=== PATIENT | male | born 1980 | race Caucasian/White ===

== ENCOUNTER 2018-03-24 09:00 | Day surgery (SDC) | payer BC ==
[~2018-03-24 09:00] MED LIST: Lactated Ringers 1,000 ML IV SCH; Propofol 200 MG/20 ML SDV ONE; Sodium Chloride 0.9% 5 ML Syringe FLUSH PRN
[2018-03-24] MEDS ORDERED: Propofol 200 MG/20 ML SDV ONE (09:17)
--- NOTE | 2018-03-24 09:48 | PCM.PN ---
- General Info Date of Service: 03/24/18 - Review of Systems Systems Review Comment:: 37-year-old male referred for upper endoscopy because of chronic symptoms of heartburn. He states symptoms are fairly well-controlled while taking Prilosec but other medicines have not controlled his symptoms well and when he stops the Prilosec he has significant symptoms. He is medically stable to proceed today. There has been no recent significant change in his health status. I have discussed the proposed upper endoscopy with the patient. The procedure was reviewed and he agrees to proceed accepting risks. - Patient Data Vitals - Most Recent: Last Vital Signs Temp 98.0 F 03/24/18 09:00 Pulse 66 03/24/18 09:00 Resp 18 03/24/18 09:00 BP 161/99 H 03/24/18 09:00 Pulse Ox 98 03/24/18 09:00 Weight - Most Recent: 97.522 kg Med Orders - Current: Current Medications Lactated Ringer's (Ringers, Lactated) 1,000 mls @ 50 mls/hr IV ASDIRECTED [facility] Last Admin: 03/24/18 09:23 Dose: 50 mls/hr Sodium Chloride (Syrex Flush) 5 ml FLUSH Q8HR PRN PRN Reason: Keep Vein Open Discontinued Medications Propofol (Diprivan 20 Ml) Confirm Administered Dose 400 mg .ROUTE .STK-MED ONE Stop: 03/24/18 08:39 - Problem List Review Problem List Initiated/Reviewed/Updated: Yes - My Orders Last 24 Hours: My Active Orders 03/23/18 12:11 Resuscitation Status Routine 03/24/18 09:00 Peripheral IV Care [RC] . DIRECTED Lactated Ringers [Ringers, Lactated] 1,000 ml IV ASDIRECTED Sodium Chloride 0.9% [Syrex Flush] 5 ml FLUSH Q8HR PRN Peripheral IV Insertion Adult [OM.PC] Routine 03/24/18 09:30 Patient to Empty Bladder [RC] ASDIRECTED Verify Patient Consent Obtain [RC] ASDIRECTED 03/24/18 Breakfast Nothing Per Oral Diet [DIET] - Assessment Assessment:: GERD - Plan Plan:: EGD
[2018-03-24] MEDS ORDERED: Propofol 200 MG/20 ML SDV IV ONE (09:50)
[2018-03-24] MEDS ORDERED: Lidocaine 1% 20 ML MDV INJECT ONE (09:50)
[2018-03-24] MEDS ORDERED: Lidocaine 2% 100 MG/5 ML Syringe IVPUSH ONE (09:50)
--- NOTE | 2018-03-24 10:26 | PCM.OPNOTE ---
- General Post-Op/Procedure Note Date of Surgery/Procedure: 03/24/18 Operative Procedure(s): EGD with Biopsy Findings: Inflammation at GE Jct - Possible Alexis's Esophagus Pre Op Diagnosis: GERD Post-Op Diagnosis: Reflux Esophagitis Anesthesia Technique: [facility] [place] Primary Surgeon: Say Jovel Pathology: Biopsies of Duodenum, Stomach, and Esophagus Output, Urine Amount: 0 EBL in mLs: 3 Complications: None Condition: Good
--- NOTE | 2018-03-24 21:05 | OR ---
DATE OF SURGERY: 03/24/2018 SURGEON: Say Jovel MD REFERRING PHYSICIAN: Pricila Valles MD PREOPERATIVE DIAGNOSIS: Gastroesophageal reflux disease. POSTOPERATIVE DIAGNOSIS: Reflux esophagitis. OPERATION PERFORMED: Esophagogastroduodenoscopy with biopsy. INDICATIONS FOR SURGERY: This is a 37-year-old male has had a longstanding history of acid reflux. He has been controlling this with Prilosec, but does require routine use of this medicine to control symptoms. FINDINGS: The patient has a moderate degree of reflux esophagitis with approximately 2 cm cephalad extension and irregularity of the Z-line. The remainder of the esophagus, stomach, and duodenum appear normal. PROCEDURE: The patient was taken to the operating room. He was given intravenous sedation, and with him in the left lateral decubitus position, the esophagus was intubated with the Olympus gastroscope. This was carefully advanced under direct visualization through the esophagus, stomach, and into the duodenum where examination to the third portion was performed. Random biopsies were taken of the duodenum to evaluate the patient's symptoms. The scope was then withdrawn back into the stomach where random biopsies of the antrum were taken to rule out H. pylori. Full examination of the stomach including retroflexed examination of the fundus was performed. The GE junction was then carefully examined with findings as described above. Biopsies were taken of the distal esophagus and GE junction area at the 38 and 36 cm level from the incisors. After these biopsies were taken and with no sign of any complication, the esophagus was re-examined as the scope was withdrawn. The scope was removed and the patient was taken from the operating room in satisfactory condition. ESTIMATED BLOOD LOSS: 3 mL. COMPLICATIONS: None. PROGNOSIS: Good. /[id number]/MODL
== END 2018-03-24 11:00 | disposition home or self-care (01) ==
LOC: KA.SDS 09:00
PROVIDERS: ATTEND Surgery
DX: K21.0 Gastro-esophageal reflux disease with esophagitis (principal); K22.70 Barrett's esophagus without dysplasia; Z79.899 Other long term (current) drug therapy
CPT/HCPCS: J2704; J7120

== ENCOUNTER 2019-05-18 02:06 | Emergency (ER) | payer BC ==
[2019-05-18] MEDS ORDERED: Sodium Chloride 0.9% 1,000 ML IV ONE (02:12)
[2019-05-18] MEDS ORDERED: Sodium Chloride 0.9% 10 ML Syringe FLUSH PRN (02:13)
[2019-05-18] MEDS ORDERED: Lisinopril 10 MG Tab PO ONE (02:35)
--- NOTE | 2019-05-18 02:43 | EDM.PDOC ---
ED HPI GENERAL MEDICAL PROBLEM - General Chief Complaint: Headache Stated Complaint: headache, HTN Time Seen by Provider: 05/18/19 02:34 Source of Information: Reports: Patient History Limitations: Reports: No Limitations - History of Present Illness INITIAL COMMENTS - FREE TEXT/NARRATIVE: Patient's a 39-year-old gentleman who presents to the emergency department this morning with a complaint of headache. Patient states he went to bed about 1130 last night, and woke up between 1 and 130 with a pressure described headache. Became concerned because he stopped his lisinopril for high blood pressure 5 days ago and took blood pressure this morning and it was elevated. Patient states that he started lisinopril and developed diarrhea and thought it may be caused by the medication. He therefore stopped the medicine but has not contacted Dr. De La Paz for follow-up. Headache has been diminishing since presentation to the ER, and patient denies blurry vision, vertigo, chest pain, shortness of breath, fever, stiff neck or neck pain, any trauma, nausea or vomiting or temporal pain. Onset: Today Onset Date: 05/18/19 Onset Time: 01:00 Duration: Minutes: Location: Reports: Head Quality: Reports: Pressure Severity: Mild Improves with: Reports: Other (Spontaneously) Worsens with: Reports: None Associated Symptoms: Reports: Headaches. 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 head Pain Score (Numeric/FACES): 5 - Related Data Allergies Allergy/AdvReac Type Severity Reaction Status Date / Time No Known Drug Allergies Allergy Other Verified 05/18/19 02:12 Home Meds: Home Meds Albuterol [Ventolin HFA] 1 puff INH ASDIRECTED PRN 03/23/18 [History] Omeprazole Magnesium [Prilosec Otc] 20 mg PO DAILY 03/23/18 [History] Montelukast Sodium [Singulair] 10 mg PO BEDTIME 05/18/19 [History] Past Medical History HEENT History: Reports: Impaired Vision Cardiovascular History: Reports: None Respiratory History: Reports: Asthma Gastrointestinal History: Reports: Chronic Diarrhea, GERD Genitourinary History: Reports: None Musculoskeletal History: Reports: None Neurological History: Reports: None Psychiatric History: Reports: None Endocrine/Metabolic History: Reports: Obesity/BMI 30+ - Infectious Disease History Infectious Disease History: Reports: Chicken Pox - Past Surgical History HEENT Surgical History: Reports: Oral Surgery Cardiovascular Surgical History: Reports: None Respiratory Surgical History: Reports: None GI Surgical History: Reports: Appendectomy Endocrine Surgical History: Reports: None Neurological Surgical History: Reports: None Musculoskeletal Surgical History: Reports: None Social & Family History - Family History Family Medical History: Noncontributory - Caffeine Use Caffeine Use: Reports: Coffee, Soda ED ROS GENERAL - Review of Systems Review Of Systems: ROS reveals no pertinent complaints other than HPI. Constitutional: Reports: No Symptoms. Denies: Fever HEENT: Reports: No Symptoms. Denies: Vertigo, Vision Change Respiratory: Reports: No Symptoms Cardiovascular: Reports: Blood Pressure Problem Endocrine: Reports: No Symptoms GI/Abdominal: Reports: No Symptoms : Reports: No Symptoms Musculoskeletal: Reports: No Symptoms Skin: Reports: No Symptoms Neurological: Reports: No Symptoms Psychiatric: Reports: No Symptoms Hematologic/Lymphatic: Reports: No Symptoms Immunologic: Reports: No Symptoms - Physical Exam Exam: See Below Exam Limited By: No Limitations General Appearance: Alert, WD/WN, No Apparent Distress Eye Exam: Bilateral Eye: Normal Inspection Nose: Normal Inspection, Normal Mucosa, No Blood Throat/Mouth: Normal Inspection, Normal Oropharynx, No Airway Compromise Head Exam: Atraumatic, Normocephalic Neck: Normal Inspection, Supple, Non-Tender, Full Range of Motion Respiratory/Chest: No Respiratory Distress, Lungs Clear, Normal Breath Sounds, No Accessory Muscle Use, Chest Non-Tender Cardiovascular: Normal Peripheral Pulses, Regular Rate, Rhythm, No Murmur, No Rub GI/Abdominal: Normal Bowel Sounds, Soft, Non-Tender, No Organomegaly, No Distention, No Abnormal Bruit, No Mass Neuro Exam (Abbreviated): Alert, Oriented, CN II-XII Intact, Normal Cognition, No Motor/Sensory Deficits Back Exam: Normal Inspection. No: CVA Tenderness (L), CVA Tenderness (R) Extremities: Normal Inspection, No Pedal Edema Psychiatric: Normal Affect, Normal Mood Skin Exam: Warm, Dry, Intact, Normal Color, No Rash Course - Vital Signs Last Recorded V/S: Last Vital Signs Temp 97.9 F 05/18/19 03:41 Pulse 64 05/18/19 03:41 Resp 16 05/18/19 03:41 BP 205/112 H 05/18/19 03:41 Pulse Ox 97 05/18/19 03:41 - Orders/Labs/Meds Orders: Active Orders 24 hr Category Date Time Status Peripheral IV Care [RC] . DIRECTED Care 05/18/19 02:13 Active Sodium Chloride 0.9% [Saline Flush] Med 05/18/19 02:13 Active 10 ml FLUSH Q8HR PRN Peripheral IV Insertion Adult [OM.PC] Routine Oth 05/18/19 02:13 Ordered Medication Orders Sodium Chloride (Saline Flush) 10 ml FLUSH Q8HR PRN PRN Reason: keep vein open Last Admin: 05/18/19 02:20 Dose: 10 ml Meds: Medications Generic Name Dose Route Start Last Admin Trade Name Freq PRN Reason Stop Dose Admin Sodium Chloride 10 ml 05/18/19 02:13 05/18/19 02:20 Saline Flush FLUSH 10 ml Q8HR PRN Administration keep vein open Discontinued Medications Generic Name Dose Route Start Last Admin Trade Name Freq PRN Reason Stop Dose Admin Hydralazine HCl 10 mg 05/18/19 03:17 05/18/19 03:25 Apresoline PO 05/18/19 03:18 10 mg ONETIME ONE Administration Sodium Chloride 1,000 mls @ 999 mls/hr 05/18/19 02:12 05/18/19 02:25 Normal Saline IV 05/18/19 03:12 999 mls/hr .BOLUS ONE Administration Ketorolac Tromethamine 30 mg 05/18/19 03:52 05/18/19 03:54 Toradol IVPUSH 05/18/19 03:53 30 mg ONETIME ONE Administration Lisinopril 10 mg 05/18/19 02:35 05/18/19 02:39 Prinivil PO 05/18/19 02:36 10 mg ONETIME ONE Administration - Re-Assessments/Exams Free Text/Narrative Re-Assessment/Exam: 05/18/19 03:52 Patient is given 10 mg of lisinopril with no improvement in BP. Patient then given 10 mg hydralazine with little improvement. Patient does appear anxious and lies flat, and then sits up, and lies flat again. Patient afebrile, blood pressure wandering systolic 160s to 190s diastolic 80s to 100. Headache has improved. Patient denies nausea, blurry vision, or dizziness. Patient will follow-up with Dr. De La Paz today for decision on blood pressure control. Patient will return to emergency department if symptoms worsen. Departure - Departure Time of Disposition: 04:07 Disposition: Home, Self-Care 01 Condition: Good Clinical Impression: Hypertension Qualifiers: Hypertension type: unspecified Qualified Code(s): I10 - Essential (primary) hypertension Headache Qualifiers: Headache type: unspecified Headache chronicity pattern: unspecified pattern Intractability: not intractable Qualified Code(s): R51 - Headache - Discharge Information Instructions: How to Take Your Blood Pressure, [id number], Hypertension, Easy -to-Read, General Headache Without Cause, [id number] Referrals: Pricila Valles MD [Physician] - Forms: ED Department Discharge Additional Instructions: Follow-up with Dr. De La Paz today. Return to emergency department if symptoms continue or worsen. - My Orders Last 24 Hours: My Active Orders 05/18/19 02:13 Peripheral IV Care [RC] . DIRECTED Sodium Chloride 0.9% [Saline Flush] 10 ml FLUSH Q8HR PRN Peripheral IV Insertion Adult [OM.PC] Routine - Assessment/Plan Last 24 Hours: My Active Orders 05/18/19 02:13 Peripheral IV Care [RC] . DIRECTED Sodium Chloride 0.9% [Saline Flush] 10 ml FLUSH Q8HR PRN Peripheral IV Insertion Adult [OM.PC] Routine
[2019-05-18] MEDS ORDERED: hydrALAZINE 10 MG Tab PO ONE (03:17)
[2019-05-18] MEDS ORDERED: Ketorolac 30 MG/ML SDV IVPUSH ONE (03:52)
== END 2019-05-18 04:11 | disposition home or self-care (01) ==
LOC: KA.ED 02:06
DX: R51 Headache (principal); I10 Essential (primary) hypertension; K21.9 Gastro-esophageal reflux disease without esophagitis; Z79.899 Other long term (current) drug therapy; J45.909 Unspecified asthma, uncomplicated
CPT/HCPCS: 96361; 96374; 99283; A9270; J1885; J7030

== ENCOUNTER 2021-09-17 07:05 | Day surgery (SDC) | payer BC ==
[~2021-09-17 07:05] MED LIST changes: -Propofol 200 MG/20 ML SDV ONE; +Sodium Chloride 0.9% 10 ML Syringe FLUSH PRN; -Sodium Chloride 0.9% 5 ML Syringe FLUSH PRN
[2021-09-17] MEDS ORDERED: Midazolam 1 MG/ML 2 ML SDV ONE (07:46)
[2021-09-17] MEDS ORDERED: Lidocaine 2% 5 ML SDV ONE (07:47)
[2021-09-17] MEDS ORDERED: Propofol 200 MG/20 ML SDV ONE (07:47)
--- NOTE | 2021-09-17 08:05 | PCM.HP.2 ---
H&P History of Present Illness - General Date of Service: 09/17/21 Source of Information: Patient, Old Records - History of Present Illness Initial Comments - Free Text/Narative: Since last clinic appt on 08/16/21, patient has had no reported changes in health status. Clinic repeat BP check was performed on 08/21/21 with improvement in BP to 132/92. He hadn't yet started the increased dose of lisinopril as he had been prescribed on 08/16/21. He has been taking omeprazole as prescribed and denies any upper GI symptoms. - Related Data Allergies/Adverse Reactions: Allergies Allergy/AdvReac Type Severity Reaction Status Date / Time No Known Drug Allergies Allergy Other Verified 09/14/21 12:11 Home Medications: Home Meds Albuterol [Ventolin HFA] 1 - 2 puff INH ASDIRECTED PRN 03/23/18 [History] Omeprazole Magnesium [Prilosec Otc] 20 mg PO DAILY 03/23/18 [History] Albuterol [Proventil Neb Soln] 1 ampule INH Q6H PRN 09/14/21 [History] lisinopriL [Lisinopril] 40 mg PO DAILY 09/14/21 [History] Past Medical History HEENT History: Reports: Impaired Vision Cardiovascular History: Reports: High Cholesterol, Hypertension Respiratory History: Reports: Asthma Gastrointestinal History: Reports: Chronic Diarrhea, GERD, Other (See Below) (Alexis esophagus) Genitourinary History: Reports: None Musculoskeletal History: Reports: None Neurological History: Reports: None Psychiatric History: Reports: None Endocrine/Metabolic History: Reports: Obesity/BMI 30+ - Infectious Disease History Infectious Disease History: Reports: Chicken Pox - Past Surgical History HEENT Surgical History: Reports: Oral Surgery Cardiovascular Surgical History: Reports: None Respiratory Surgical History: Reports: None GI Surgical History: Reports: Appendectomy, EGD Endocrine Surgical History: Reports: None Neurological Surgical History: Reports: None Musculoskeletal Surgical History: Reports: None Social & Family History - Family History Family Medical History: No Pertinent Family History - Tobacco Use Tobacco Use Status *Q: Never Tobacco User - Caffeine Use Caffeine Use: Reports: Coffee, Soda - Recreational Drug Use Recreational Drug Use: No H&P Review of Systems - Review of Systems: Review Of Systems: See Below Pulmonary: Denies: Shortness of Breath, Pleuritic Chest Pain, Cough Cardiovascular: Denies: Chest Pain, Dyspnea on Exertion, Edema, Lightheadedness Gastrointestinal: Denies: Abdominal Pain, Constipation, Diarrhea, Difficulty Swallowing, Nausea, Vomiting Exam - Exam Exam: See Below - Vital Signs Vital Signs: Last Vital Signs Temp 35.9 C L 09/17/21 07:08 Pulse 63 09/17/21 07:08 Resp 18 09/17/21 07:08 BP 165/101 H 09/17/21 07:08 Pulse Ox 97 09/17/21 07:08 Weight: 107.955 kg - Exam General: Alert, Oriented HEENT: Conjunctiva Clear Neck: Supple, Trachea Midline Lungs: Clear to Auscultation, Normal Respiratory Effort Cardiovascular: Regular Rate, Regular Rhythm GI/Abdominal Exam: Normal Bowel Sounds, Soft, Non-Tender Sepsis Event Note - Focused Exam Vital Signs: Vital Signs Temp Pulse Resp BP Pulse Ox 09/17/21 07:08 35.9 C L 63 18 165/101 H 97 Problem List Initiated/Reviewed/Updated: Yes Orders Last 24hrs: Active Orders 24 hr Category Date Time Status Patient to Empty Bladder [RC] ASDIRECTED Care 09/17/21 07:30 Active Peripheral IV Care [RC] . DIRECTED Care 09/17/21 07:00 Active Verify Patient Consent Obtain [RC] ASDIRECTED Care 09/17/21 08:00 Active Nothing Per Oral Diet [DIET] Diet 09/17/21 Breakfast Active Lactated Ringers [Ringers, Lactated] 1,000 ml Med 09/17/21 07:00 Active IV ASDIRECTED Sodium Chloride 0.9% [Saline Flush] Med 09/17/21 07:00 Active 10 ml FLUSH Q8HR PRN Peripheral IV Insertion Adult [OM.PC] Routine Oth 09/17/21 07:00 Ordered Medication Orders Lactated Ringer's (Ringers, Lactated) 1,000 mls @ 50 mls/hr IV ASDIRECTED [facility] [place] Last Admin: 09/17/21 07:21 Dose: 50 mls/hr Documented by: TICO Sodium Chloride (Sodium Chloride 0.9% 10 Ml Syringe) 10 ml FLUSH Q8HR PRN PRN Reason: keep vein open Assessment/Plan Comment:: Proceed with EGD for Alexis esophagus surveillance. Will coordinate with anesthesia to consider one time antihypertensive given elevated diastolic BP this morning. Ensure patient begins taking increased dose of lisinopril 40mg at discharge.
[2021-09-17] MEDS ORDERED: Lactated Ringers 1,000 ML ONE (08:42)
--- NOTE | 2021-09-17 08:48 | PCM.PRNOTE ---
- Free Text/Narrative Note: PROCEDURE PERFORMED: Esophagogastroduodenoscopy with biopsy PRE-PROCEDURE DIAGNOSIS/INDICATION FOR PROCEDURE: Alexis's esophagus; last EGD 2018 with 2cm segment without dysplasia CONSENT: Informed consent was obtained prior to the procedure after discussion of the risks (including pain, bleeding, infection, perforation, need for further procedures, adverse reaction to anesthesia, cardiovascular event), benefits and alternatives and expected outcomes. Verbal consent given and consent form signed. PROCEDURAL PAUSE: Completed SEDATION: Per anesthesia DESCRIPTION OF PROCEDURE: Patient was brought back to the operating room and placed in a left lateral decubitus position. Bite block placed. After adequate sedation and anesthetic was administered, endoscope was inserted into the patient's mouth and on second attempt (withdrew above cords on first attempt due to patient tolerance and subsequently more anesthetic was given) was passed easily through the esophagus and stomach into the duodenum without difficulty. Examined duodenum normal appearing. Stomach, including viewing in retroflexion, normal appearing aside from 5 polyps, which were removed with cold forceps. Also obtained biopsy specimens for H. pylori evaluation. The gastroesophageal junction was at 38 cm from the incisors. Z-line irregular with 2cm extension of esophagitis. Four quadrant biopsies obtained at 38cm and 36cm. The scope was removed without difficulty. Patient tolerated the procedure well. No complications. IMPRESSION: Esophagogastroduodenoscopy performed revealing: - Gastric polyps, pathology now pending - Esophagitis, Alexis's esophagus surveillance biopsies obtained with pathology now pending PLAN: Will contact the patient when pathology results received. Discussed appropriate administration of antacid medication. Patient also needs to ensure taking prescribed dose of lisinopril 40mg daily and schedule sleep study as significant evidence of obstruction today.
== END 2021-09-17 10:10 | disposition home or self-care (01) ==
LOC: KA.SDS 07:05
PROVIDERS: ATTEND Family Medicine
DX: K31.7 Polyp of stomach and duodenum (principal); K21.00 Gastro-esophageal reflux disease with esophagitis, without bleeding; K22.70 Barrett's esophagus without dysplasia; K22.89 Other specified disease of esophagus; E78.00 Pure hypercholesterolemia, unspecified; I10 Essential (primary) hypertension; J45.909 Unspecified asthma, uncomplicated; E66.9 Obesity, unspecified; Z90.49 Acquired absence of other specified parts of digestive tract; Z79.899 Other long term (current) drug therapy; Z68.35 Body mass index [BMI] 35.0-35.9, adult
CPT/HCPCS: 00731; J2250; J2704; J7120